=== PATIENT | male | born 1975 | race Caucasian/White ===

== ENCOUNTER 2017-05-24 16:38 | Emergency (ER) | payer MEDICAID ==
[2017-05-24 16:38] VITALS: BMI 27.5
[2017-05-24 16:58] VITALS: BP 135/87; PULSE 92; RESP 16; TEMP 98.1; O2SAT 100
--- NOTE | 2017-05-24 17:36 | ED PDOC ---
Upper Extremity Pain/Injury Time Seen by Provider: 05/24/17 16:42 Chief Complaint (Nursing): Finger,Hand,&Wrist Chief Complaint (Provider): Finger injury History Per: Patient Additional Complaint(s): 42 yo male, offers no PMH, presents to ED for evaluation of to ED for evaluation of pain and swelling to nailbed of left index finger for a few days. Denies fever, no drainage. Past Medical History Reviewed: Nursing Documentation, Vital Signs Vital Signs: Last Vital Signs Temp 98.1 F 05/24/17 16:55 Pulse 92 H 05/24/17 16:55 Resp 16 05/24/17 16:55 BP 135/87 05/24/17 16:55 Pulse Ox 100 05/24/17 16:55 - Medical History PMH: No Chronic Diseases - Surgical History Surgical History: No Surg Hx - Family History Family History: States: Unknown Family Hx - Living Arrangements Living Arrangements: With Family - Social History Current smoker - smoking cessation education provided: No Alcohol: Social Drugs: Denies - Home Medications Home Medications: Ambulatory Orders Medication Instructions Recorded Cephalexin [Keflex] 1 tab PO QID #40 capsule 03/27/16 Dimethicone/Colloidal Oatmeal 1 appl TOP BID #226 gm 03/27/16 [Aveeno Daily Moisturizing Lot] Azelaic Acid [Finacea] 50 gm TP DAILY #1 gel..gram. 06/26/16 Guaifenesin [Mucinex] 600 mg PO BID #14 tab.er.12h 04/03/17 Azithromycin 250 mg PO DAILY #6 tab 04/07/17 Cephalexin [cephalexin] 500 mg PO BID #14 cap 05/24/17 - Allergies Allergies/Adverse Reactions: Allergies Allergy/AdvReac Type Severity Reaction Status Date / Time Sulfa (Sulfonamide Allergy RASH Verified 05/24/17 16:55 Antibiotics) Review of Systems ROS Statement: Except As Marked, All Systems Reviewed And Found Negative Skin: Positive for: Other (left index finger redness and swelling) Physical Exam - Reviewed Nursing Documentation Reviewed: Yes Vital Signs Reviewed: Yes - Physical Exam Appears: Positive for: Well, Non-toxic, No Acute Distress Head Exam: Positive for: ATRAUMATIC, NORMAL INSPECTION, NORMOCEPHALIC Skin: Positive for: Normal Color, Warm, DRY Cardiovascular/Chest: Positive for: Regular Rate, Rhythm Respiratory: Positive for: CNT, Normal Breath Sounds Neurologic/Psych: Positive for: Alert Comments: left index finger: (+) erythema, edema, and fluctuance noted to cuticle - ECG O2 Sat by Pulse Oximetry: 100 Medical Decision Making Medical Decision Making: paronychia 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
== END 2017-05-24 17:36 | disposition home or self-care (01) ==
LOC: H.ER 16:38
DX: L03.012 Cellulitis of left finger (principal)